=== PATIENT | female | born 1995 | race Two or more races ===

== ENCOUNTER 2024-09-05 07:12 | Emergency (ER) | payer MEDICAID, SELFPAY ==
[2024-09-05 07:30] VITALS: BP 141/92; PULSE 128; RESP 20; TEMP 36.9; O2SAT 96; BMI 30.1
--- NOTE | 2024-09-05 07:40 | PD.EDMEDCL ---
ED Medical Clearance RME/HPI General Chief complaint: Medical Clearance Stated complaint: CLEARANCE Time Seen by Provider: 09/05/24 07:40 Arrival date/time: 09/05/24 07:12 RME / HPI RME / HPI Narrative: 28 year old female with history of depression presents to the ED brougth in by [employer] for medical clearance for incarceration today. Per officer, patient was complaining of burning pain to bilateral lower extremities otherwise no other complaints reported. Patient denies fevers, chills, chest pain, cough, shortness of breath, abdominal pain, n/v/d, or urinary symptoms. Related Information Home Medications ?Medication ?Instructions ?Recorded ?Confirmed Unobtainable 03/28/21 03/28/21 Allergies Allergy/AdvReac Type Severity Reaction Status Date / Time hydromorphone [From Dilaudid] Allergy Rash Verified 04/26/22 15:41 Review of Systems Review of Systems Narrative Review of Systems: Gen: No fever, no chills, no weight loss EYES: No discharge, no visual changes, no pain HEENT: No ear pain, no congestion, no sore throat PULM: No shortness of breath, no cough, no congestion CV: No chest pain, no dyspnea on exertion, no palpitations GI: No nausea, no vomiting, no diarrhea, no pain, no constipation : No frequency, no urgency,? no dysuria Musc/skel: + burning pain to bilateral lower extremities. No joint pain, no back pain Skin: No rash. Neuro: No weakness, no headache Past Medical History Past Medical History NEUROLOGIC: Negative Neurological Disorders CARDIAC: Negative Cardiac Disorders RESPIRATORY: Negative Respiratory Disorders GASTROINTESTINAL: Negative Gastrointestinal Disorders GENITOURINARY: Negative Genitourinary Disorders or Renal Disease REPRODUCTIVE: Positive Previous Pregnancies (4. 3X C SECTIONS) MUSCULOSKELETAL: Negative Musculoskeletal Disorders ENDOCRINE: Negative Endocrine Disorders HEMATOLOGIC: Negative Blood Disorders PSYCHO/SOCIAL: Positive Recreational Drug Use, Depression and Anxiety Surgical History SURGICAL: Positive Abdominal Surgery and Section (X3); Negative Endocrine Surgery or Ear Surgery Social History SMOKING STATUS: Never smoker SUBSTANCE USE: methamphetamine ED Exam Narrative Physical exam: GENERAL: In general the patient is awake, interactive, in an emergency department gurney. Tearful, not diaphoretic, not tremulous. HEAD/EYES/EARS/NOSE/THROAT: normo-cephalic, atraumatic, mucus membranes are moist, anicteric, palpebral conjunctiva is pink, trachea is midline. CARDIOVASCULAR: regular rate and regular rhythm, no murmurs, heart sounds are not distant, strong pulses in all four extremities that are equal and symmetric bilateral upper and lower extremities, normal capillary refill. CHEST/PULMONARY: normal chest rise and fall, good air movement, clear to auscultation bilaterally, normal inspiratory to expiratory ratios without evidence of respiratory distress. ABDOMEN: soft, not tender, no masses appreciated BACK: normal range of motion without pain. NEUROLOGICAL: cranio-facial features are symmetric, moves all four extremities equally without obvious limitations or weakness. EXTREMITY: no tenderness to palpation over the long bones or large joints of the bilateral upper and lower extremities, no joint swelling, no joint erythema, no signs of trauma, no unilateral leg swelling and no peripheral edema. SKIN: warm, dry, well-perfused, no jaundice, no rash, no telangiectasias or petechia. PSYCH: tearful, cooperative, no evidence of psychosis Course Quality Measures none Reevaluation(s) Reevaluation #1: Patients heart rate improved. Will DC to shelter. Time: 09:10 Vital Signs Vital signs: Vital Signs Temperature 98.5 F 09/05/24 07:30 Pulse Rate 128 H 09/05/24 07:30 Respiratory Rate 20 09/05/24 07:30 Blood Pressure 141/92 H 09/05/24 07:30 Pulse Oximetry (%) 96 09/05/24 07:30 Oxygen Delivery Method Room Air 09/05/24 07:30 Pulse ox is 96% on room air which is adequate. Medical Clearance MDM Narrative MDM Narrative:: Izzy Bermuedz am scribing for and in the presence of Dr. Larsen. Patient data External records reviewed:: [facility] previous records (I reviewed ED visit on 04/26/2022) Clinical information provided by:: patient and law enforcement Social determinants that could affect healthcare access:: alcohol use Patient has the following chronic illnesses:: No stated chronic medical history How is presenting disease/condition affected by chronic disease/condition?: no chronic disease Evaluation data The following diagnostics were reviewed and interpreted by me:: other (specify) (N/A ) Lab and/or radiology exams considered but not ordered:: None Interpretation Summary: N/A Medications / Prescriptions Medications or Prescriptions considered but not ordered:: None Medication administrations:: None Consultations Consultation(s) initiated? (list below): No Diagnosis Medical Clearance Differential Diagnosis: other (Tachycardia, dehydration, alcohol intoxication) Most likely diagnosis given after review of the tests above:: Alcohol use Admission Indicated Admission indicated?: not indicated Admission Request Was there a request for admission?: No Disposition Plan Disposition Plan: Discharge Discharge Attestation Discharge Attestation: The patient and all family members were given an opportunity to ask questions and understood the discharge instructions. Discharge instructions specifically effects, indications for sooner follow up or return to the emergency department, and the expected course of current diagnosis. Patient condition: Stable Discharge Plan Plan Patient Disposition: Half-Way/Court/Law Patient condition on transfer: Stable Prescriptions/Referrals Prescriptions/Med Rec: No Action Unobtainable Referrals: No Primary/Family,Physician [Primary Care Provider] - In 1 week Problem List Clinical Impression: Alcohol use Patient/Caregiver Discharge Instructions Diet Instructions: Stay hydrated with Gatorade and water. Additional Instructions: Return to emergency department for any worsening symptoms, or any other concerns Print Language: Romansh Stand Alone Forms: Steffi Award Info., Patient Portal Info Letter
[2024-09-05 08:25] VITALS: BP 145/86; PULSE 115; RESP 16; TEMP 36.8; O2SAT 96
[2024-09-05 09:05] VITALS: BP 126/84; PULSE 109; RESP 20; O2SAT 95
--- NOTE | 2024-09-05 09:06 | PC.NURSE ---
Pt drank apple juice and approx 200 ml of water. Pt encouraged to drink more water. Pt able to move all extremities and is able to ambulate.
== END 2024-09-05 09:24 ==
PROVIDERS: Emergency Provider Emergency Medicine
DX: Z02.89 Encounter for other administrative examinations (principal); F10.90 Alcohol use, unspecified, uncomplicated
CPT/HCPCS: 99281

== ENCOUNTER 2025-04-29 01:08 | Emergency (ER) | payer MEDICAID, SELFPAY ==
[2025-04-29 01:08] VITALS: BMI 30.9
[2025-04-29 01:58] LABS: Basophils # (Auto) 0.0 Thou/mm3 (0.0-0.2); Basophils % (Auto) 0 % (0-2.5); Eosinophils # (Auto) 0.0 Thou/mm3 (0.0-0.5); Eosinophils % (Auto) 0 % (0-10); Hematocrit 38.7 % (36.0-46.0); Hemoglobin 13.6 g/dL (12.0-16.0); Immature Granulocytes Auto 0.03 Thou/mm3 (0.00-0.00); Lymphocytes # (Auto) 4.4 Thou/mm3 (1.0-4.8); Lymphocytes % (Auto) 34 % (10-50); Mean Corpuscular HGB Conc 35.1 g/dl (31.0-37.0); Mean Corpuscular Hemoglobin 32.0 pg (25.0-35.0); Mean Corpuscular Volume 91 fL (80-100); Monocytes # (Auto) 0.9 Thou/mm3 (0.0-0.8); Monocytes % (Auto) 7 % (0-12); Neutrophils # (Auto) 7.4 Thou/mm3 (1.8-7.7); Neutrophils % (Auto) 58 % (37-80); Nucleated Red Blood Cell # 0.00 Thou/mm3 (0.00-0.00); Nucleated Red Blood Cell % 0 /100 WBC (0); Platelet Count 264 Thou/mm3 (140-440); RDW Standard Deviation 41.1 fL (36.4-46.3); Red Blood Count 4.25 Miln/mm3 (4.00-5.20); White Blood Count 12.7 Thou/mm3 (3.6-11.0)
[2025-04-29 02:24] LABS: Alanine Aminotransferase 40 U/L (10-49); Albumin, Serum 4.4 gm/dL (3.5-5.0); Albumin/Globulin Ratio 1.8 (1.2-2.2); Alkaline Phosphatase 65 U/L (46-116); Anion Gap 10 (7-16); Aspartate Amino Transferase 24 U/L (0-34); BUN/Creatinine Ratio 13 Ratio (12-20); Bilirubin,Total 0.3 mg/dL (0.3-1.2); Blood Urea Nitrogen 10 mg/dL (9-23); Calcium 9.7 mg/dL (8.3-10.6); Calcium (Corrected) 9.7 mg/dL (8.5-10.1); Carbon Dioxide 25.8 mMol/L (20.0-31.0); Chloride 108 mMol/L (98-107); Creatinine (Component) 0.8 mg/dL (0.6-1.3); Estimated Creatinine Clearance 102.6 mL/min (>60); Globulin 2.5 gm/dL (2.3-3.5); Glucose 112 mg/dL (74-106); Osmolality,Calculated 286 (275-295); Potassium 4.7 mMol/L (3.4-5.1); Sodium 144 mMol/L (136-145); Total Protein 6.9 gm/dL (5.7-8.2); eGFR > 60 See Note
[2025-04-29 02:34] LABS: Collection Type, Urine Voided
[2025-04-29 02:48] LABS: HCG,Qualitative Serum Negative
[2025-04-29 02:53] LABS: Bilirubin,Urine Negative (Negative); Blood,Urine Negative (Negative); Clarity,Urine Turbid (Clear/Hazy); Color,Urine Yellow (Lt Yel-Yel); Glucose, Urine Negative (Negative); Ketones,Urine Negative (Negative); Leukocyte Esterase,Urine Negative (Negative); Nitrite,Urine Negative (Negative); PH,Urine 6.0 (5.0-7.0); Protein,Urine Trace (Neg - Trace); RBC,Urine 3 /hpf (0-3); Specific Gravity,Urine 1.036 (1.001-1.035); Squamous Epithelial Cell,Urine 11 /hpf (0-5); Urobilinogen,Urine 2.0 mg/dL (0.0-1.0); WBC,Urine 3 /hpf (0-5)
--- NOTE | 2025-04-29 03:12 | PD.EDNV ---
Nausea/Vomit./Diarrhea-RME/HPI General Chief complaint: Nausea/Vomiting/Diarrhea Stated complaint: BODY PAIN, NAUSEA Time Seen by Provider: 04/29/25 01:13 Arrival date/time: 04/29/25 01:08 This is a case of 29-year-old female who came in in the emergency room due to generalized body ache nausea and vomiting for 2 days patient denies abdominal pain denies any diarrhea constipation blood in stool fever or chills patient states that she is on Suboxone therapy and started to have symptoms 2 days prior to arrival in the emergency room denies any other symptoms Limitations: no limitations Related Data Previous Rx's ?Medication ?Instructions ?Recorded ibuprofen 800 mg tablet 800 mg PO Q8H PRN pain #20 tabs 04/29/25 ondansetron 4 mg disintegrating 4 mg PO Q8H PRN nausea and 04/29/25 tablet vomiting #20 tabs Allergies Allergy/AdvReac Type Severity Reaction Status Date / Time hydromorphone (From Dilaudid) Allergy Rash Verified 04/26/22 15:41 Review of Systems Review of Systems Systems Reviewed: All systems reviewed, normal except as documented Constitutional Constitutional: Reports system reviewed and no additional complaints, except as documented and Reports as per HPI Cardiovascular Cardiovascular: Reports system reviewed and no additional complaints, except as documented and Reports as per HPI Respiratory Respiratory: Reports system reviewed and no additional complaints, except as documented and Reports as per HPI Gastrointestinal Gastrointestinal: Reports system reviewed and no additional complaints, except as documented and Reports as per HPI Genitourinary Genitourinary: Reports system reviewed and no additional complaints, except as documented and Reports as per HPI Musculoskeletal Musculoskeletal: Reports system reviewed and no additional complaints, except as documented and Reports as per HPI Neurologic Neurologic: Reports system reviewed and no additional complaints, except as documented and Reports as per HPI Psychiatric Psychiatric: Reports system reviewed and no additional complaints, except as documented and Reports as per HPI Past Medical History Past Medical History NEUROLOGIC: Negative Neurological Disorders CARDIAC: Negative Cardiac Disorders or Congestive Heart Failure RESPIRATORY: Negative Chronic Obstructive Pulmonary Disease (COPD) or Asthma GASTROINTESTINAL: Negative Gastrointestinal Disorders GENITOURINARY: Negative Genitourinary Disorders or Renal Disease REPRODUCTIVE: Positive Previous Pregnancies (4. 3X C SECTIONS); Negative Pelvic Inflammatory Disease MUSCULOSKELETAL: Negative Musculoskeletal Disorders ENDOCRINE: Negative Endocrine Disorders, Diabetes Mellitus Type 1 or Diabetes Mellitus Type 2 HEMATOLOGIC: Negative Blood Disorders or Sickle Cell Disease PSYCHO/SOCIAL: Positive Recreational Drug Use, Depression and Anxiety OTHER HISTORY: Negative Autoimmune Disease or Anesthesia Reactions Surgical History SURGICAL: Positive Abdominal Surgery and Section (X3); Negative Endocrine Surgery or Ear Surgery Social History SMOKING STATUS: Never smoker SUBSTANCE USE: methamphetamine ED Exam General Limitations: Present no limitations General appearance: Present alert and in no apparent distress; Absent appears intoxicated, anxious, lethargic, obtunded, in distress, obese or cachectic Head Head exam: Present atraumatic and normocephalic Eye Eye exam: Present normal appearance, PERRL and EOMI ENT ENT exam: Present normal exam, normal oropharynx, mucous membranes moist and mucous membranes dry Neck Neck exam: Present normal inspection, full ROM and trachea midline; Absent tenderness, meningismus, lymphadenopathy or thyromegaly Chest Chest inspection: Present normal inspection and symmetric chest wall rise; Absent tenderness, rash or abscess Respiratory Respiratory exam: Present normal lung sounds bilaterally; Absent respiratory distress, wheezes, stridor, accessory muscle use or prolonged expiratory phase Cardiovascular Cardiovascular exam: Present regular rate, normal rhythm and normal heart sounds; Absent bradycardia, tachycardia, irregular rhythm, systolic murmur or diastolic murmur Abdominal Exam Abdominal exam: Present soft and normal bowel sounds; Absent distention, tenderness, guarding, rebound, rigidity, diminished bowel sounds, hyperactive bowel sounds, organomegaly, obturator sign, Ladd's sign, Rovsing's sign, tenderness at McBurney's Point or ascites Extremities Exam Extremities exam: Present normal inspection and full ROM Back Exam Back exam: Present normal inspection and full ROM Neurological Exam Neurological exam: Present alert, oriented X3, CN II-XII intact, normal gait and reflexes normal; Absent motor sensory deficit Psychiatric Psychiatric exam: Present normal affect and normal mood; Absent depressed, agitated, anxious, flat affect, manic, homicidal ideation or suicidal ideation Skin Skin exam: Present warm, dry, intact and normal color; Absent rash, cyanosis, diaphoresis, erythema or pallor Course Quality Measures none Orders Category Date Time Status CBC Stat Lab 04/29/25 01:52 Completed CMP [Comprehensive Metabolic Panel] Stat Lab 04/29/25 01:52 Completed HCG,Qualitative Serum Stat Lab 04/29/25 01:52 Completed Urinalysis Stat Lab 04/29/25 02:26 Completed Ketorolac Inj [Toradol Inj] Med 04/29/25 03:09 Discontinued 30 mg IM X1 ONE Ondansetron Inj [Zofran Inj] Med 04/29/25 03:09 Discontinued 4 mg IM X1 ONE Vital Signs Vital signs: Oxygen saturation normal Nausea/Vomiting/Diarrhea MDM Narrative MDM Narrative:: This is a case of 29-year-old female who came in in the emergency room due to generalized body ache nausea and vomiting for 2 days patient denies abdominal pain denies any diarrhea constipation blood in stool fever or chills patient states that she is on Suboxone therapy and started to have symptoms 2 days prior to arrival in the emergency room denies any other symptoms physical examination patient is awake alert oriented not in distress nontoxic looking neurological exam is normal GCS 15/15 steady gait psychiatric exam is normal no anxiety no depression no suicidal no homicidal ideation no hallucination lungs sound is clear no crackles no rales no retraction no stridor abdominal exam is benign nonsurgical no guarding no rebound no rigidity no tenderness the rest of the physical examination neurological exam is normal and unremarkable blood test showed no leukocytosis no anemia kidney and liver function is normal no electrolyte imbalance patient is not urinalysis is normal after giving Toradol IM Zofran IM patient pain was a resolved no recurrence of vomiting oral fluid challenge passed and tolerated well at this point patient will be discharged home in stable condition she was advised to follow-up with his Suboxone doctor for further evaluation and treatment for any recurrent persistent worsening symptoms she will return in the emergency room immediately or call 911 Patient was discharged with comfortable condition walking with stable gait. Patient verbalized no further complains explained diagnosis and answered patient question. Patient is comfortable with the proposed management plan including the need to follow up with his/her primary care physician and any specialist if applicable Discussed patient for any urgent condition or worsening sx, He/She needed to go to emergency room immediately or call 911. Patient acknowledge the responsibility to follow up as instructed and to monitor her/his symptoms. For any persistence of the symptoms for more than 3-5 days return precaution advised. Discussed the result of the test and was given printed discharge instruction Patient data External records reviewed:: [facility] previous records Clinical information provided by:: patient Social determinants that could affect healthcare access:: none Patient has the following chronic illnesses:: None How is presenting disease/condition affected by chronic disease/condition?: no chronic disease Evaluation data The following diagnostics were reviewed and interpreted by me:: lab results Lab and/or radiology exams considered but not ordered:: Reviewed Interpretation Summary: Reviewed Medications / Prescriptions Medications / Prescriptions considered but not ordered:: Given Medication administrations:: Medication Administration History Discontinued Medications Ketorolac Tromethamine (Ketorolac Inj 60 Mg/2 Ml Vial) 30 mg IM X1 ONE Stop: 04/29/25 03:10 Ondansetron HCl (Ondansetron Inj 2 Mg/Ml Inj 2 Ml) 4 mg IM X1 ONE; Protocol Stop: 04/29/25 03:10 Given Consultations Consultation(s) initiated? (list below): No Diagnosis Nausea Differential Diagnosis: gastroenteritis and dehydration Most likely diagnosis given after review of the tests above:: Vomiting body ache Admission Indicated Admission indicated?: not indicated Explain why admission is indicated or not indicated:: Not indicated Admission Request Was there a request for admission?: No Admission Attestation Admission request attestation: Not indicated Disposition Plan Disposition Plan: Discharge Discharge Attestation Discharge Attestation: The patient and all family members were given an opportunity to ask questions and understood the discharge instructions. Discharge instructions specifically effects, indications for sooner follow up or return to the emergency department, and the expected course of current diagnosis. Patient condition: Stable Discharge Plan Plan Patient Disposition: HOME (Self Care) Prescriptions/Referrals Prescriptions/Med Rec: New ibuprofen 800 mg tablet 800 mg PO Q8H PRN (Reason: pain) Qty: 20 0RF ondansetron 4 mg tablet,disintegrating 4 mg PO Q8H PRN (Reason: nausea and vomiting) Qty: 20 0RF Referrals: Robert Zambrano MD [Primary Care Provider] - In 1 week Problem List Clinical Impression: Generalized body aches, Vomiting Patient/Caregiver Discharge Instructions Education Materials: Understanding the Pain Response, ED Vomiting (Adult) Additional Instructions: Follow-up with your primary care physician in 2 days for reevaluation worsening symptoms recurrence of the symptoms persistent symptoms or any emergent concern call 911 or go to the nearest emergency room follow-up with your Suboxone doctor for further evaluation and treatment of your pain take your medication as directed increase water intake Pedialyte Gatorade for every bouts of vomiting keep hydrated Print Language: Persian Stand Alone Forms: Steffi Award Info., Patient Portal Info Letter CARIN/WILDER Supervising Physician CARIN/WILDER Supervising Physician: dr shipley
[2025-04-29 03:50] VITALS: BP 130/74; PULSE 61; RESP 16; TEMP 36.7; O2SAT 98
[2025-04-29] MEDS: KETOROLAC INJ 60 MG/2 ML VIAL 30 MG IM (03:54)
[2025-04-29] MEDS: ONDANSETRON ODT 4 MG TABRAP PO (03:55)
== END 2025-04-29 04:27 | disposition home or self-care (01) ==
PROVIDERS: Nurse Practitioner Family; Emergency Provider Emergency Medicine; PCP Family Medicine
DX: R52 Pain, unspecified (principal); R11.2 Nausea with vomiting, unspecified
CPT/HCPCS: 36415; 80053; 81001; 84703; 85025; 96372; 99283; J1885; Q0162